=== PATIENT | female | born 1950 | race Caucasian/White ===

== ENCOUNTER 2016-05-30 19:10 | Observation (INO) | payer SELFPAY ==
[2016-05-30 19:11] VITALS: BP 200/100; PULSE 91; RESP 18; TEMP 98.1; O2SAT 97
[2016-05-30] MEDS ORDERED: NEXI20CA PO (19:44)
[2016-05-30] MEDS ORDERED: LEVO75TA3 PO (19:44)
[2016-05-30 20:16] LABS: BLOOD, URINE NEG (NEG); COMMENT (UR) CULT NOT INDICATED; CULTURE IF INDICATED CULT NOT INDICATED; GLUCOSE,URINE NEG (NEG); KETONE, URINE NEG (NEG); MUCUS URINE FEW /lpf (OCC); NITRITE,URINE NEG (NEG); PH, URINE 6.5 (5.0-8.5); SQUAMOUS EPITHELIAL CELL URINE <1 /hpf (0-5); URINE COLOR COLORLESS (YELLW/STRAW)
[2016-05-30 23:04] VITALS: BP 141/67; PULSE 78; RESP 16; O2SAT 96
[2016-05-30 23:37] LABS: BICARBONATE 25.1 MEQ/L (21.0-32.0); HEMATOCRIT 42.1 % (35.0-46.0); MEAN CELL VOLUME 89.6 FL (80.0-100.0); MEAN CORPUSCULAR HGB CONC 33.5 % (32.0-36.0); PLATELET COUNT 220 TH/MM3 (150-450); POTASSIUM 4.1 MEQ/L (3.5-5.1); RED BLOOD COUNT 4.71 MIL/MM3 (4.00-5.30); RED CELL DISTRIBUTION WIDTH 14.1 % (11.6-17.2); WHITE BLOOD COUNT 11.1 TH/MM3 (4.0-11.0)
[2016-05-30 23:38] LABS: REVIEW FLAG FINAL
[2016-05-30 23:46] LABS: APTT (PATIENT) 21.1 SEC (24.3-30.1); PROTHROMBIN TIME - PATIENT 10.7 SEC (9.8-11.6)
[2016-05-31] VITALS (7 sets, daily range): BP systolic 113–165; BP diastolic 68–83; PULSE 54–88; RESP 16–20; TEMP 97.4–97.6; O2SAT 94–96
[2016-05-31 01:24] LABS: ALKALINE PHOSPHATASE 53 U/L (45-117); TOTAL BILIRUBIN ADULT 0.2 MG/DL (0.2-1.0)
[2016-05-31 01:25] LABS: ALT (GPT) 16 U/L (10-53); AST (GOT) 22 U/L (15-37); INDIRECT BILIRUBIN 0.1 MG/DL (0.0-0.8)
--- NOTE | 2016-05-31 01:27 | PD ---
HPI Chief Complaint: Abdominal Pain Time Seen by Provider: 00:23 Travel History International Travel<30 days: No Contact w/Intl Traveler<30days: No Traveled to known affect area: No History of Present Illness HPI 65 yo [facility] presenting to the [facility] ED for evaluation of abdominal pain that has been on going for over one week. Patient states she was seen at an urgent care clinic last Monday for LLQ pain and given a course of Cipro for probable UTI. She states her pain at that time was 9/10 and prevented her from eating for three days. The LLQ pain has since diminished and she now states it has moved around her left side up her back and now describes a feeling of bilateral chest tightness under her breasts. She came in tonight because at dinner time she experienced an episode of chest tightness and was concerned. She does state that she is an anxious person and that this may be playing a role in her symptoms. She also states she uses PPI daily but has not recently and notes more frequent burping over the past few days. Never had a colonoscopy. States she has fibromyalgia and IBS. She denies any nausea vomiting, fever, chest pain , SOB. PFSH Past Medical History Thyroid Disease: Yes (HYPO) ?: Not Past Surgical History Other Surgery: Yes (THYROIDECTOMY) Social History Alcohol Use: No Tobacco Use: Yes (1 PPD) Substance Use: No Allergies-Medications (Allergen,Severity, Reaction): Coded Allergies: Sulfa (Verified Allergy, Severe, Anaphylaxis, 05/30/16) Reported Meds & Prescriptions Reported Meds & Active Scripts Active Reported Levothyroxine (Levothyroxine Sodium) 75 Mcg Tab 75 Mcg PO DAILY Nexium (Esomeprazole DR) 20 Mg Capdr 20 Mg PO DAILY Narrative Medication Baby aspirin 2-3 nightly Review of Systems Except as stated in HPI: all other systems reviewed are Neg General / Constitutional: Positive: Chills, No: Fever Cardiovascular: No: Chest Pain or Discomfort Gastrointestinal: Positive: Nausea, Abdominal Pain, No: Vomiting, Diarrhea, Hematemesis, Hematochezia, Constipation, Changes in Bowel Habits, Indigestion, Dysphagia, Loss of Appetite Genitourinary: Positive: Dysuria Psychiatric: Positive: Anxiety Physical Exam Narrative GENERAL: AAOx3, NAD, WNWD SKIN: Warm and dry. HEAD: Atraumatic. Normocephalic. EYES: Pupils equal and round. No scleral icterus. No injection or drainage. ENT: No nasal bleeding or discharge. Mucous membranes pink and moist. NECK: Trachea midline. No JVD. CARDIOVASCULAR: Regular rate and rhythm. RESPIRATORY: No accessory muscle use. Clear to auscultation. Breath sounds equal bilaterally. GASTROINTESTINAL: Abdomen soft, non-tender, nondistended. Hepatic and splenic margins not palpable. MUSCULOSKELETAL: Extremities without clubbing, cyanosis, or edema. No obvious deformities. Negative CVA tenderness NEUROLOGICAL: Awake and alert. No obvious cranial nerve deficits. Motor grossly within normal limits. Five out of 5 muscle strength in the arms and legs. Normal speech. PSYCHIATRIC: Appropriate mood and affect; insight and judgment normal. Data Data Last Documented VS Vital Signs Date Time Temp Pulse Resp B/P Pulse Ox O2 Delivery O2 Flow Rate FiO2 05/31/16 02:20 16 05/30/16 23:04 78 141/67 96 Room Air 05/30/16 19:11 98.1 Orders Urinalysis - C+S If Indicated (05/30/16 19:59) Cbc No Diff, Includes Plts (05/30/16 23:13) Basic Metabolic Panel (Bmp) (05/30/16 23:13) Coag Profile (05/30/16 23:13) Hepatic Functional Panel (05/31/16 00:23) Lipase (05/31/16 00:23) Electrocardiogram (05/31/16 02:05) Ckmb (Isoenzyme) Profile (05/31/16 02:05) Troponin I (05/31/16 02:05) Chest, Single Ap (05/31/16 02:05) Ecg Monitoring (05/31/16 02:05) Iv Access Insert/Monitor (05/31/16 02:05) Oximetry (05/31/16 02:05) Aspirin Chew (Aspirin Chew) (05/31/16 02:15) Morphine Inj (Morphine Inj) (05/31/16 02:15) Nitroglycerin Sl (Nitrostat Sl) (05/31/16 02:15) CKMB (05/30/16 23:10) CKMB% (05/30/16 23:10) Admit Order (Ed Use Only) (05/31/16 03:06) Activity Bed Rest With Brp (05/31/16 03:06) Labs Laboratory Tests Test 05/30/16 05/30/16 19:58 23:10 Urine Color COLORLESS Urine Turbidity CLEAR Urine pH 6.5 Urine Specific [place] 1.001 Urine Protein NEG mg/dL Urine Glucose (UA) NEG mg/dL Urine Ketones NEG mg/dL Urine Occult Blood NEG Urine Nitrite NEG Urine Bilirubin NEG Urine Urobilinogen LESS THAN 2.0 MG/DL Urine Leukocyte Esterase NEG Urine WBC 1 /hpf Urine Squamous Epithelial <1 /hpf Cells Urine Mucus FEW /lpf Microscopic Urinalysis Comment CULT NOT INDICATED White Blood Count 11.1 TH/MM3 Red Blood Count 4.71 MIL/MM3 Hemoglobin 14.1 GM/DL Hematocrit 42.1 % Mean Corpuscular Volume 89.6 FL Mean Corpuscular Hemoglobin 30.0 PG Mean Corpuscular Hemoglobin 33.5 % Concent Red Cell Distribution Width 14.1 % Platelet Count 220 TH/MM3 Mean Platelet Volume 9.1 FL Prothrombin Time 10.7 SEC Prothromb Time International 1.0 RATIO Ratio Activated Partial 21.1 SEC Thromboplast Time Sodium Level 139 MEQ/L Potassium Level 4.1 MEQ/L Chloride Level 106 MEQ/L Carbon Dioxide Level 25.1 MEQ/L Anion Gap 8 MEQ/L Blood Urea Nitrogen 9 MG/DL Creatinine 0.72 MG/DL Estimat Glomerular Filtration 82 ML/MIN Rate Random Glucose 88 MG/DL Calcium Level 8.7 MG/DL Total Bilirubin 0.2 MG/DL Direct Bilirubin LESS THAN 0.1 MG/DL Indirect Bilirubin 0.1 MG/DL Aspartate Amino Transf 22 U/L (AST/SGOT) Alanine Aminotransferase 16 U/L (ALT/SGPT) Alkaline Phosphatase 53 U/L Total Creatine Kinase 298 U/L Creatine Kinase MB 2.2 NG/ML Creatine Kinase MB % 0.7 % Troponin I LESS THAN 0.02 NG/ML Total Protein 7.2 GM/DL Albumin 3.9 GM/DL Lipase 291 U/L [facility] Medical Decision Making Medical Screen Exam Complete: Yes Emergency Medical Condition: Yes Differential Diagnosis NSTEMI, unstable angina, coronary vasospasm, PE, PTX, aortic dissection, pericarditis, myocarditis, endocarditis, PNA, esophageal disease, aneurysm, musculoskeletal etiologies, anxiety, cocaine/sympathomimetic abuse Narrative Course CBC & BMP Diagram 05/30/16 23:10 LFTs normal Lipase normal UA no uti INR 1.0 PTT 21.1 Tn < 0.02 EKG: sinus, rate 62, q waves noted Last 24 hours Impressions Chest X-Ray 05/31/16 0205 Signed Impressions: Service Date/Time: Tuesday, May 31, 2016 02:16 - CONCLUSION: Normal examination for a patient of this age. Darren Black MD Patient reports that she came into the ER tonight due to chest pain. She has had fairly vague complaints of abdominal pain originating left lower quadrant which has since resolved. She completed a course of Cipro for possible UTI prescribed by an urgent care facility. She is a lifetime smoker. She reports her grandparents and both of her parents had coronary artery disease. She describes fairly constant chest tightness. No radiation. Mild shortness of breath reported. She also notes her blood pressure has been elevated for the past few days. Diagnosis Primary Impression: Chest tightness Additional Impression: Dyspnea Qualified Code: R06.00 - Dyspnea, unspecified type Admitting Information Admitting Physician Requests: Observation Arnold Birch MD May 31, 2016 01:27
[2016-05-31] MEDS ORDERED: ASPIRIN 81 MG CHEW TAB PO ONE (02:15)
[2016-05-31] MEDS ORDERED: MORPHINE SULFATE 4 MG/ML INJ IV PUSH ONE (02:15)
[2016-05-31] MEDS: NITROGLYCERIN 0.4 MG SL 25 TABS/BTL SL SCH ×3 (02:21→02:28)
--- NOTE | 2016-05-31 02:38 | RADRPT ---
EXAM DATE/TIME: 05/31/2016 02:16 [facility] COMPARISON: No previous studies available for comparison. INDICATIONS : Chest pain. MEDICAL HISTORY : None. SURGICAL HISTORY : None. ENCOUNTER: Initial ACUITY: 1 day PAIN SCORE: 4/10 LOCATION: Bilateral chest FINDINGS: A single view of the chest demonstrates the lungs to be symmetrically aerated without evidence of mas s, infiltrate or effusion. The cardiomediastinal contours are unremarkable. Osseous structures are intact. CONCLUSION: Normal examination for a patient of this age. Darren Black MD on May 31, 2016 at 2:36 Board Certified Radiologist. This report was verified electronically.
[2016-05-31 02:41] LABS: CREATINE KINASE 298 U/L (26-192)
[2016-05-31 02:54] LABS: CKMB 2.2 NG/ML (0.5-3.6)
[2016-05-31] MEDS ORDERED: NITROGLYCERIN 0.4 MG SL 25 TABS/BTL SL PRN (03:15)
[2016-05-31] MEDS ORDERED: ACETAMINOPHEN/HYDROcodone 325 MG/7.5 MG TAB PO PRN (03:15)
[2016-05-31] MEDS ORDERED: MORPHINE SULFATE 4 MG/ML INJ IV PRN (03:15)
[2016-05-31] MEDS ORDERED: SODIUM CHLORIDE 0.9% FLUSH 5 ML FLUSH IVF PRN (03:15)
[2016-05-31] MEDS ORDERED: TEMAZEPAM 15 MG CAP PO PRN (03:15)
[2016-05-31] MEDS ORDERED: ALPRAZolam 0.25 MG TAB PO PRN (03:15)
[2016-05-31] MEDS: METOPROLOL TARTRATE 25 MG TAB PO SCH ×2 (03:19→15:47)
[2016-05-31 05:07] LABS: CREATINE KINASE 277 U/L (26-192)
[2016-05-31 05:19] LABS: CKMB 2.5 NG/ML (0.5-3.6)
[2016-05-31 06:47] LABS: CREATINE KINASE 220 U/L (26-192)
[2016-05-31] MEDS ORDERED: SODIUM CHLORIDE 0.9% FLUSH 5 ML FLUSH IVF SCH (09:00)
[2016-05-31] MEDS ORDERED: ASPIRIN 325 MG TAB PO SCH (09:00)
--- NOTE | 2016-05-31 10:40 | EKG ---
Date Performed: 05/31/2016 Time Performed: 04:38:44 PTAGE: 65 years EKG: SINUS BRADYCARDIA INDETERMINATE AXIS LOW QRS VOLTAGE IN PRECORDIAL LEADS POSSIBLE ANTERIOR MYOCARDIAL INFARCTION ABNORMAL ECG Since PREVIOUS TRACING , no significant change noted PREVIOUS TRACIN05/31/2016 02.56 DOCTOR: Carla Blanco Interpretating Date/Time 05/31/2016 10:39:19
--- NOTE | 2016-05-31 10:40 | EKG ---
Date Performed: 05/31/2016 Time Performed: 06:03:36 PTAGE: 65 years EKG: SINUS BRADYCARDIA INDETERMINATE AXIS LOW QRS VOLTAGE IN PRECORDIAL LEADS POSSIBLE ANTERIOR MYOCARDIAL INFARCTION BORDERLINE ECG Since PREVIOUS TRACING , no significant change noted PREVIOUS TRACIN05/31/2016 04.38 DOCTOR: Carla Blanco Interpretating Date/Time 05/31/2016 10:39:04
--- NOTE | 2016-05-31 10:43 | EKG ---
Date Performed: 05/31/2016 Time Performed: 02:56:09 PTAGE: 65 years EKG: Sinus rhythm INDETERMINATE AXIS LOW QRS VOLTAGE IN PRECORDIAL LEADS POSSIBLE ANTERIOR MYOCARDIAL INFARCTION LITO CAGLE ECG NO PREVIOUS TRACING DOCTOR: Carla Blanco Interpretating Date/Time 05/31/2016 10:41:51
[2016-05-31] MEDS: LEVOTHYROXINE SODIUM 75 MCG TAB PO SCH ×2 (11:30→15:46)
[2016-05-31] MEDS ORDERED: PANTOPRAZOLE SOD 40 MG DELAYED RELEASE TAB PO SCH (11:30)
[2016-05-31] MEDS ORDERED: REGADENOSON INJ 0.4 MG/5 ML SYR ONE (14:19)
--- NOTE | 2016-05-31 15:25 | MH ---
cc: MARCELLA SARMIENTO MD DATE OF ADMISSION: 05/31/2016 DATE OF : 1950 CHIEF COMPLAINT Abdominal pain and chest pain. HISTORY OF PRESENT ILLNESS This is a 65-year-old patient presents to the emergency room for further evaluation of abdominal discomfort and also chest pain. The patient states over the past week she has had vague abdominal discomfort that starts in her bilateral groins, however, yesterday she developed chest tightness in the middle of her chest felt as though "I was being zipped up" she has some radiation under her left breast. The duration lasted approximately two hours with some slight shortness of breath. It did not hurt to take a deep breath. She had no nausea. She believes she could have been anxious and caused herself to have an anxiety reaction. No known precipitating factors or relieving factors. PAST MEDICAL HISTORY Hypothyroidism Gastroesophageal reflux disease Fibromyalgia Irritable bowel syndrome PAST SURGICAL HISTORY Thyroidectomy. FAMILY HISTORY: Family history is noncontributory for any early onset cardiovascular disease. Mother in her 80s from stroke and she also had a heart attack. Father in his 80s from a stroke and she had a sister that 6 months ago that was older than her from complications of diabetes and COPD. SOCIAL HISTORY She is active. She works her job on the computer. She plans to move back to [place] in approximately three weeks. She had smoked since her early 20s approximately one pack of cigarettes daily. She continues to smoke. She denies any alcohol or illegal drug use. No known hypertension, diabetes or hyperlipidemia. Her primary care provider is at [facility]. She had seen her primary care provider on Monday regarding her abdominal discomfort and concerns. PAST CARDIAC TESTING: She had a stress test past cardiac testing. She had a stress test approximately 15 years ago that was unremarkable. She does not follow with a demographer. She had an allergic to softball MEDICATIONS current medications include below 1. Thyroxine 75 mcg daily. 2. Nexium 20 mg daily. 3. Aspirin 81 mg daily. REVIEW OF SYSTEMS GENERAL: States she has been in general state of health with no recent illness. Her travel, fevers or chills, change in appetite. HEAD, EYES, EARS, NOSE, AND THROAT: No headache or visual changes or dysphagia. No nasal congestion or drainage. CARDIOVASCULAR SYSTEM: As stated above. Reports intermittent palpitations occasionally when going to bed or after drinking a cup of coffee this is not new to her. This no dizziness, intermittent leg pain. RESPIRATORY: No shortness of breath. Reports an occasional cough. She relates this smoking. No wheezing known COPD or asthma. No hemoptysis. ABDOMEN: No bowel changes side from her normal irritable bowel symptoms. No blood in the stool or dark stool or nausea or vomiting. Reports a good appetite. No increase or decrease in weight unintentionally. GENITOURINARY: No dysuria. EXTREMITIES: No lower leg edema or pain. MUSCULOSKELETAL: No change in all limbs. NEUROLOGIC: No difficulty with balance, motor sensory deficits. PSYCHIATRIC: Psych no anxiety or depression. SKIN: She has no concerning lesions or rashes. PHYSICAL EXAMINATION VITAL SIGNS: Temperature 97.4, pulse 63, respiratory 89, blood pressure 113/68 and she is 96% on room air. GENERAL: She is alert, obese, well-nourished, well-developed in no acute distress pleasant female. HEAD, EYES, EARS, NOSE, AND THROAT: Head: Normocephalic, atraumatic. Eyes: Sclerae clear. Conjunctivae was without injection. ENT: Mucous membranes are pink and moist. NECK: Neck is supple. Trachea is midline. CARDIOVASCULAR SYSTEM: She has a regular rate and rhythm. Without murmur, rub or gallop. No JVD. S1-S2. No S3. No S4. No carotid bruits. RESPIRATORY: Clear lungs throughout bilaterally with no crackles, wheeze or rhonchi. She has symmetrical chest rise. Nonlabored. Able to speak in full sentences. ABDOMEN: Soft, nontender, nondistended with no masses or she has a positive bowel tones. BACK: no Costovertebral angle tenderness. No scoliosis. EXTREMITIES: Pulses +2 x4. No dependent edema appreciated. MUSCULOSKELETAL: She had no obvious deformities. Normal tone x4 extremities and she is nontender chest wall. NEUROLOGIC: Cranial nerves II through XII grossly intact. Motor strength 5/5 gait is within normal limits. PSYCHIATRIC: Psych she is alert, oriented x3, mildly anxious but appropriate mood, insight and judgment. SKIN: Normal turgor, normal texture. Warm and dry. LABORATORY CBC has a WBC of 11.1 otherwise unremarkable. Chemistry is unremarkable. Three sets of cardiac enzyme is unremarkable. The UA was completed is unremarkable. Chest x-ray Read by radiologist has a conclusion of normal exam for the patient. Three EKG's showed normal sinus bradycardic rhythm with low voltage in the precordial leads, possible anterior myocardial infarction. ASSESSMENT AND PLAN: Chest pain. The patient is admitted to the chest pain center was ruled out with three sets of EKG's and cardiac enzymes. She was seen evaluated by Dr. Marcella Sarmiento. I expect the patient at the next appointment to have a chemical stress test. The patient is agreeable to this plan of care. Further disposition to follow results of that stress test. Tobacco use. She has been strongly encouraged and stressed importance of tobacco cessation. Discussed and counseled the patient to quit smoking. Hypothyroidism with TSH has been ordered. Abdominal discomfort encouraged her to continue to follow up her primary care provider regarding possible outpatient testing. She is agreeable to this plan of care. DICTATED BY: FRANKLIN Kelly Terri Valenzuela/rommel /2:08 PM /4:16 PM
--- NOTE | 2016-05-31 15:31 | RADRPT ---
EXAM DATE/TIME: 05/31/2016 13:47 [facility] COMPARISON: No previous studies available for comparison. INDICATIONS : Substernal chest pain radiating to left arm. Angina. DOSE: 25.0 mCi Tc99m Myoview at stress. 8.3 mCi Tc99m Myoview at rest. 0.4 mg Lexiscan STRESS SYMPTOMS: Anxious and flushed. EJECTION FRACTION: 67% MEDICAL HISTORY : Hypothyroidism. SURGICAL HISTORY : Thyroidectomy. ENCOUNTER: Initial ACUITY: 1 day PAIN SCALE: 4/10 LOCATION: Left lower quadrant pain TECHNIQUE: The patient underwent pharmacologic stress with infusion of prescribed dose. Continuous ECG tracing was monitored during stress. Gated SPECT imaging was performed after stress and conventional SPECT i maging was performed at rest. The examination was performed on a SPECT/CT scanner, both attenuation and non-corrected datasets were reviewed. FINDINGS: DISTRIBUTION: The maximum perfused segment at stress is in the anterolateral wall. PERFUSION STUDY: The pattern of perfusion at stress is within normal limits. GATED STUDY: There is intact wall motion and thickening without hypokinetic or dyskinetic segments. CONCLUSION: 1. Unremarkable myocardial perfusion scan. RISK CATEGORY: Low (<1% Annual Mortality Rate) Cesar Sibley MD on May 31, 2016 at 15:29 Board Certified Radiologist. This report was verified electronically.
--- NOTE | 2016-05-31 16:27 | HHI.DCPOC ---
Discharge Care Plan Diagnosis: (1) Atypical chest pain (2) Tobacco abuse Goals to Promote Your Health * To prevent worsening of your condition and complications * To maintain your health at the optimal level Directions to Meet Your Goals Take your medications as prescribed Follow your dietary instruction Follow activity as directed Keep your appointments as scheduled Take your immunizations and boosters as scheduled If your symptoms worsen call your PCP, if no PCP go to Urgent Care Center or Emergency Room Smoking is Dangerous to Your Health. Avoid second hand smoke Call the 24-hour hour crisis hotline for domestic abuse at Rebecca Arvizu May 31, 2016 16:27
[2016-05-31] MEDS ORDERED: LEVO100T5 PO ×2 (17:55→18:01)
--- NOTE | 2016-06-01 15:34 | TR ---
Date Performed: 05/31/2016 Time Performed: 14:22:38 DOCTOR: Cesar Ortega DRUG LIST: CLINICAL HISTORY: REASON FOR TEST: CHEST PAIN REASON FOR ENDING: OBSERVATION: CONCLUSION: Lexiscan stress test was performed under standard four minute protocol. Radionuclid e was injected one minute prior to ending the test. No electrocardiographic abormalities were present to suggest ischemia. Nuclear imaging and interpretation are pending. COMMENTS:
== END 2016-05-31 18:24 | disposition home or self-care (01) ==
LOC: NEPE 19:10 → NEDA 05-31 03:09 → NEPFCDU 05-31 12:49
PROVIDERS: ADMIT Internal Medicine Interventional Cardiology; ATTEND Internal Medicine Interventional Cardiology
DX: R07.9 Chest pain, unspecified (principal); R94.31 Abnormal electrocardiogram [ECG] [EKG]; F17.200 Nicotine dependence, unspecified, uncomplicated; K21.9 Gastro-esophageal reflux disease without esophagitis; E03.9 Hypothyroidism, unspecified; M79.7 Fibromyalgia; K58.9 Irritable bowel syndrome, unspecified; Z82.49 Family history of ischemic heart disease and other diseases of the circulatory system
CPT/HCPCS: 71010; 78452; 80048; 80076; 81001; 82550; 82552; 83690; 84443; 84484; 85027; 85610; 85730; 93005; 93017; 99285; A9502; G0378; J2785